=== PATIENT | female | born 1970 | race African-American/Black ===

== ENCOUNTER 2020-01-19 02:55 | Emergency (ER) | payer OTHER, SELFPAY ==
--- NOTE | ~2020-01-19 | XR_ITS ---
EXAMINATION: XR chest 2V DATE: 01/19/2020 03:20 INDICATION: Shortness of breath. TECHNIQUE: Frontal and lateral views of the chest were obtained. COMPARISON: None. FINDINGS: The chest demonstrates clear lungs without pneumonia, pleural effusion, or pneumothorax. Th e heart size is normal. IMPRESSION: 1. No acute cardiopulmonary disease. Reviewed, dictated and finalized at location A.
[2020-01-19 03:01] VITALS: BP 213/102; PULSE 67; RESP 21; TEMP 36.9; O2SAT 99
--- NOTE | 2020-01-19 03:08 | ECG_ITS ---
Measurements Intervals [place] Rate: 77 P: 53 WI: 173 QRS: -27 QRSD: 111 T: 1 QT: 360 QTc: 408 Interpretive Statements SINUS RHYTHM WITH SINUS ARRHYTHMIA INTRAVENTRICULAR CONDUCTION DELAY VOLTAGE CRITERIA FOR LVH MINIMAL Q WAVES- LATERAL LEADS BORDERLINE T WAVE ABNORMALITY- ANT/INF LEADS BASELINE ARTIFACT- V5 BORDERLINE ECG Electronically Signed On 01-19-2020 7:05:25 CDT by Sukumar Amezcua D.O.
--- NOTE | 2020-01-19 03:08 | ED.SOB ---
HPI - SOB/Dyspnea General Chief Complaint: Recheck/Abnormal Lab/Rx Stated Complaint: hi b/p re-check Time Seen by Provider: 01/19/20 03:03 Source: patient, RN notes reviewed and old records reviewed Mode of arrival: ambulatory Limitations: no limitations History of Present Illness HPI Narrative: Pt is a 49 y/o female who presents to the ED with c/o intermittent SOB starting 2 days ago. She notes that she began having SOB and what she believed to be a panic attack while walking up and down her stairs 2 nights ago. Pt states that her SOB later subsided. She notes that she noticed her BP was elevated earlier yesterday afternoon, which prompted her to be seen at an urgent care facility. Pt states that she again developed SOB while laying down to go to sleep this evening. She notes that she doesn't feel anxious at this time, and currently denies any SOB while in the ED bed. Pt also denies any CP or ABD pain. Denies any headaches, vision changes numbness or tingling in the extremities or any other symptoms of concern MD elicited complaint: shortness of breath Onset (ago): day(s) (2) Timing: intermittent and now resolved Exacerbating factors: lying flat Associated symptoms: denies other symptoms Related Data Allergies Allergy/AdvReac Type Severity Reaction Status Date / Time No Known Allergies Allergy Verified 01/19/20 03:09 Review of Systems Review of Systems: All systems reviewed & are unremarkable except as noted in HPI and below Cardiovascular: Cardiovascular: Denies chest pain Respiratory: Respiratory: Reports dyspnea Gastrointestinal: Gastrointestinal: Denies abdominal pain Psychiatric: Psychiatric: Denies anxiety [facility] Past Medical History Medical History Anemia HTN (hypertension) Surgical History Surgical History No significant past surgical history Family History Family History (Updated 12/11/15 @ 14:17 by DOCTOR UNKNOWN) Mother Hypertension Father Hypertension Patient's father is Social History Social History Smoking status: Never smoker Second hand tobacco smoke exposure: No Alcohol intake: never Exam Narrative: Exam Narrative: APPEARANCE: No acute distress, nontoxic, resting in bed EYES: EOMI HEENT: Normocephalic, atraumatic, OMM RESPIRATORY: No respiratory distress Clear to auscultation bilaterally with no rhonchi wheezing or rales. CARDIOVASCULAR: Regular rate and rhythm without murmurs rubs or gallops. ABDOMINAL: Soft, nontender, nondistended, no rebound or guarding MUSCULOSKELETAl: Moves all extremities. No clubbing, cyanosis or edema. NEURO: Awake and alert. Following commands, speech normal, no focal deficits SKIN:: Warm, dry. No rashes lesions or abrasions PSYCHIATRIC: Normal affect/mood, Course Course Emergency Course: According to old records, the pt had an office visit from Jun 2016 in which she was diagnosed with essential HTN. She was placed on Amlodipine 5 mg daily by her PCP at the time, Dr. Bekah Blake. Due to complaints of epigastric abdominal pain. Evaluate the patient on exam tender to palpation epigastric region, no tenderness right upper quadrant left upper quadrant Patient given a cocktail with resolution of symptoms Discussed with patient results of workup and diagnosis. Discussed need for follow-up with primary care, proper use of medication, and reasons to return to the emergency department. Patient understands and agrees to current treatment plan Vital Signs Vital signs: Vital Signs Temperature 98.5 F 01/19/20 03:01 Pulse Rate 67 01/19/20 03:01 Respiratory Rate 21 H 01/19/20 03:01 Blood Pressure 213/102 H 01/19/20 03:01 Pulse Oximetry 99 01/19/20 03:01 Temperature 98.5 F 01/19/20 03:01 Pulse Rate 56 L 01/19/20 04:47 Respiratory Rate 18 01/19/20 04:47 Blood Pressu
[2020-01-19 03:16] LABS: Basophils Percent Auto 0.6 % (0.2-1.2); Eosinophils Absolute Auto 0.1 K/mm3 (0-0.3); Eosinophils Percent Auto 1.7 % (0-4.4); Hematocrit 38.8 % (37.0-47.0); Hemoglobin 12.6 g/dL (12.0-15.0); Lymphocytes Absolute Auto 2.26 K/mm3 (0.9-3.2); Mean Corpuscular HGB Conc 32.5 g/dl (32-36); Mean Corpuscular Hemoglobin 29.9 pg (26-34); Mean Corpuscular Volume 91.9 fl (80-100); Monocytes Absolute Auto 0.4 K/mm3 (0.1-0.6); Neutrophils Absolute Auto 2.5 K/mm3 (1.3-6.7); Neutrophils Percent Auto 47.7 % (45.5-73.1); Platelet Count Result 225 k/mm3 (150-375); Red Blood Count 4.22 M/mm3 (4.2-5.4); Red Cell Distribution Width 12.4 % (11.5-14.5); White Blood Count 5.3 K/mm3 (4.5-10.0)
[2020-01-19 03:20] VITALS: BP 175/90
[2020-01-19 03:30] LABS: Blood Urea Nitrogen 9 mg/dL (7-17); Calcium 9.2 mg/dL (8.4-10.2); Carbon Dioxide 28 mmol/L (22-30); Chloride 103 mmol/L (98-107); Estimated Glomerular Filt Rate > 60; Glucose 99 mg/dL (65-105); Sodium 141 mmol/L (137-145)
[2020-01-19 03:40] LABS: Partial Thromboplastin Time 30.2 SECONDS (22.3-36.8)
[2020-01-19 03:42] LABS: Troponin I < 0.012 ng/mL (0.000-0.034)
[2020-01-19] MEDS: POTASSIUM CHLORIDE 20 MEQ TABLET 40 MEQ PO (03:54)
[2020-01-19 03:55] VITALS: BP 178/84; PULSE 102; RESP 23; O2SAT 97
[2020-01-19 04:36] LABS: Alanine Aminotransferase 13 U/L (4-35); Albumin Level 4.6 g/dL (3.5-5.1); Alkaline Phosphatase 111 U/L (38-126); Aspartate Amino Transferase 24 U/L (14-36); Bilirubin,Total 0.6 mg/dL (0.2-1.3); Lipase 54 U/L (23-300)
[2020-01-19 04:47] VITALS: BP 168/96; PULSE 56; RESP 18; O2SAT 100
[2020-01-19 05:18] LABS: Add Urine Microscopic? YES; Appearance Urine Clear (Clear); Bilirubin Urine Negative (Negative); Blood Urine 2+ (Negative); Color Urine Yellow (Yellow); Glucose Urine UA Negative (Negative); Ketones Urine Negative (Negative); Leukocyte Esterase Ur Negative LEU/UL (Negative); Mucus Urine Rare /lpf; Nitrate Urine Negative (Negative); Protein Urine Negative (Negative); Specific Grav Ur 1.014 (1.001-1.035); Squamous Epithelial Cell Urine Many /hpf (Few); Urobilinogen Urine Negative mg/dL (<2.0); WBC Urine 0-3 /hpf
[2020-01-19 06:03] VITALS: BP 169/89; PULSE 62; RESP 14; TEMP 36.9; O2SAT 97
== END 2020-01-19 06:03 | disposition home or self-care (01) ==
PROVIDERS: Emergency Provider Emergency Medicine
DX: I10 Essential (primary) hypertension (principal); R10.13 Epigastric pain; Z86.2 Personal history of diseases of the blood and blood-forming organs and certain disorders involving the immune mechanism
CPT/HCPCS: 36415; 71046; 80048; 80076; 81001; 83690; 84484; 85025; 85610; 85730; 93005; 99284; A9270

== ENCOUNTER 2020-01-20 15:26 | Emergency (ER) | payer OTHER, SELFPAY ==
[2020-01-20 15:34] VITALS: BP 161/84; PULSE 77; RESP 18; TEMP 36.9; O2SAT 100
[2020-01-20 15:40] VITALS: PULSE 66
--- NOTE | 2020-01-20 15:43 | ED.CHESTPAIN ---
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 She states that she was seen her yesterday for SOB and ABD pain and was dx with HTN and GERD. She reports that she was placed on Amlodipine and Famotidine, and states that she has taken 2 dosages of each. She notes that today her BP was high, she developed SOB, TORRES, and substernal CP, so she returned to the ED. She also notes that her CP only lasted roughly 2 minutes and has since resolved, but that she is still having her other symptoms. She denies any radiation of the pain or anything aggravating or alleviating it. She also denies any N/V/D, fevers, chills, sweats, sore throat, rhinorrhea, or cough. MD complaint: chest pain Onset (ago): minute(s) Timing of current episode: now resolved Pain location: substernal Pain radiation: none Quality: tightness and burning Relieving factors: nothing Exacerbating factors: nothing Associated symptoms: dyspnea and other (TORRES) Related Data Allergies Allergy/AdvReac Type Severity Reaction Status Date / Time No Known Allergies Allergy Verified 01/20/20 15:49 Review of Systems Review of Systems: All systems reviewed & are unremarkable except as noted in HPI and below Constitutional: Constitutional: Denies chills, Denies fever(s) and Denies other (sweats) ENT: Denies nasal discharge and Denies sore throat Cardiovascular: Cardiovascular: Reports chest pain (resolved) Respiratory: Respiratory: Denies cough and Reports dyspnea Gastrointestinal: Gastrointestinal: Denies diarrhea, Denies nausea and Denies vomiting Neurologic: Reports headache(s) [facility] Past Medical History Medical History (Updated 01/20/20 @ 17:59 by Tavo Campos MD) Anemia GERD (gastroesophageal reflux disease) HTN (hypertension) Surgical History Surgical History No significant past surgical history Family History Family History Mother Hypertension Father Hypertension Patient's father is Social History Social History Smoking status: Never smoker Second hand tobacco smoke exposure: No Alcohol intake: never Gender identity (if verbalized by the patient): Female Exam Narrative: Exam Narrative: GENERAL: Well-appearing, well-nourished, and in no acute distress. HEAD: Normocephalic, atraumatic. ENT: Mucous membranes moist. CHEST: Clear to auscultation. No respiratory distress. HEART: Regular rate and rhythm. Normal peripheral pulses. ABDOMEN: Soft, nontender, nondistended. EXTREMITIES: Normal range of motion. No edema. SKIN: Warm, dry, no rash. NEURO: Alert and oriented x3. PSYCH: Normal mood and affect. Course Course Emergency Course: Unremarkable evaluation. Reviewed previous visit. Needs follow-up with PCP and continue amlodipine and famotidine therapy. Vital Signs Vital signs: Vital Signs Temperature 98.4 F 01/20/20 15:34 Pulse Rate 77 01/20/20 15:34 Respiratory Rate 18 01/20/20 15:34 Blood Pressure 161/84 H 01/20/20 15:34 Pulse Oximetry 100 01/20/20 15:34 Temperature 98.4 F 01/20/20 15:34 Pulse Rate 74 01/20/20 17:30 Respiratory Rate 18 01/20/20 17:30 Blood Pressure 136/86 01/20/20 17:30 Pulse Oximetry 100 01/20/20 17:30 MDM - Chest Pain Lab Data Result diagrams: 01/20/20 15:55 01/20/20 16:21 Labs: Lab Results 01/20/20 01/20/20 01/20/20 Range/Units 15:55 16:21 16:21 WBC 7.0 (4.5-10.0) K/mm3 RBC 4.38 (4.2-5.4) M/mm3 Hgb 13.0 (12.0-15.0) g/dL Hct 40.0 (37.0-47.0) % MCV 91.3 (
--- NOTE | 2020-01-20 15:48 | ECG_ITS ---
Measurements Intervals [place] Rate: 65 P: 38 VT: 160 QRS: -24 QRSD: 105 T: 6 QT: 395 QTc: 413 Interpretive Statements SINUS RHYTHM VOLTAGE CRITERIA FOR LVH MINIMAL Q WAVES- LATERAL LEADS BORDERLINE T WAVE ABNORMALITY- ANTEROLAT/INF LEADS BASELINE WANDER- I, II, AVR, AVL, AVF, V1-V3 BORDERLINE ECG Electronically Signed On 01-20-2020 16:49:57 CDT by Sukumar Amezcua D.O.
[2020-01-20 16:03] LABS: Basophils Percent Auto 0.6 % (0.2-1.2); Eosinophils Percent Auto 0.4 % (0-4.4); Immature Granulocyte Absolute 0.01 K/mm3 (0.00-0.031); Immature Granulocyte Percent A 0.1 % (0-0.5); Lymphocytes Absolute Auto 1.48 K/mm3 (0.9-3.2); Lymphocytes Percent Auto 21.3 % (18.3-44.2); Mean Corpuscular HGB Conc 32.5 g/dl (32-36); Mean Corpuscular Hemoglobin 29.7 pg (26-34); Mean Corpuscular Volume 91.3 fl (80-100); Mean Platelet Volume 11.5 fl (7.4-10.4); Monocytes Absolute Auto 0.4 K/mm3 (0.1-0.6); Monocytes Percent Auto 5.6 % (2.6-8.5); Platelet Count Result 242 k/mm3 (150-375); Red Blood Count 4.38 M/mm3 (4.2-5.4); Red Cell Distribution Width 12.2 % (11.5-14.5)
[2020-01-20 16:36] LABS: INR 1.1; Prothrombin Time 13.6 Seconds (11.1-14.7)
[2020-01-20 16:37] LABS: Partial Thromboplastin Time 30.3 SECONDS (22.3-36.8)
[2020-01-20 16:39] LABS: Blood Urea Nitrogen 16 mg/dL (7-17); Calcium 9.3 mg/dL (8.4-10.2); Carbon Dioxide 25 mmol/L (22-30); Chloride 106 mmol/L (98-107); Estimated CRCL calculation 65 ml/min; Estimated Glomerular Filt Rate > 60; Glucose 76 mg/dL (65-105); Potassium 3.6 mmol/L (3.4-5.0); Sodium 139 mmol/L (137-145)
[2020-01-20 16:51] LABS: Troponin I < 0.012 ng/mL (0.000-0.034)
[2020-01-20 17:30] VITALS: BP 136/86; PULSE 74; RESP 18; O2SAT 100
[2020-01-20 18:27] VITALS: BP 134/90; PULSE 70; RESP 18; O2SAT 100
== END 2020-01-20 18:33 | disposition home or self-care (01) ==
PROVIDERS: Emergency Provider Emergency Medicine
DX: I10 Essential (primary) hypertension (principal); F41.9 Anxiety disorder, unspecified; K21.9 Gastro-esophageal reflux disease without esophagitis; Z86.2 Personal history of diseases of the blood and blood-forming organs and certain disorders involving the immune mechanism; R94.31 Abnormal electrocardiogram [ECG] [EKG]
CPT/HCPCS: 36415; 80048; 84484; 85025; 85610; 85730; 93005; 99284

== ENCOUNTER 2020-10-05 01:59 | Outpatient (CLI) | payer OTHER, SELFPAY ==
[2020-10-05 19:59] LABS: SARS-CoV-2 RNA PCR Negative
== END 2020-10-05 02:00 | disposition home or self-care (01) ==
LOC: ANHCOVIDDT 01:59
PROVIDERS: Visit Provider Obstetrics & Gynecology
DX: Z01.818 Encounter for other preprocedural examination (principal); Z20.828 Contact with and (suspected) exposure to other viral communicable diseases
CPT/HCPCS: 87635; C9803; U0003

== ENCOUNTER 2020-10-05 12:58 | Outpatient (CLI) | payer OTHER, SELFPAY ==
[2020-10-05 13:29] LABS: Hematocrit 35.7 % (37.0-47.0); Hemoglobin 12.2 g/dL (12.0-15.0)
== END 2020-10-05 12:59 | disposition home or self-care (01) ==
LOC: ANHSURGERY 13:05
PROVIDERS: PCP Emergency Medicine; Visit Provider Obstetrics & Gynecology
DX: Z01.818 Encounter for other preprocedural examination (principal); Z20.828 Contact with and (suspected) exposure to other viral communicable diseases
CPT/HCPCS: 36415; 85014; 85018

== ENCOUNTER 2020-10-08 02:29 | Day surgery (SDC) | payer OTHER, SELFPAY ==
--- NOTE | 2020-10-02 13:52 | PM.IMHP ---
H&P: HPI History of Present Illness Date/Time: 10/02/20 13:52 Chief complaint: Enlarged Uterus Narrative: Orin Castillo is a 50 year old female 3. Para 3 admitted for hysteroscopy and dilatation and curettage. She has periods postmenopausal bleeding. She underwent an ultrasound which showed some fluid in the endometrial lining. In light of the she will undergo hysteroscopy /dilatation and curettage to rule pathology. Risks and benefits reviewed. She had all questions answered. She asked to proceed Review of Systems Review of Systems: All systems reviewed & are unremarkable except as noted in HPI and below PMFSH Past Medical History Medical History Anemia GERD (gastroesophageal reflux disease) HTN (hypertension) Surgical History Surgical History No significant past surgical history Family History Family History Mother Hypertension Father Hypertension Patient's father is Social History Social History Smoking status: Never smoker Second hand tobacco smoke exposure: No Alcohol intake: never Gender identity (if verbalized by the patient): Female Meds Home Medications and Allergies Home Medications Medication Instructions Recorded Confirmed Type amlodipine 5 mg PO DAILY #14 tablet 01/19/20 Rx famotidine [Pepcid] 20 mg PO DAILY #14 tablet 01/19/20 Rx Allergies Allergy/AdvReac Type Severity Reaction Status Date / Time No Known Allergies Allergy Verified 01/20/20 15:49 Exam Const: General: no acute distress Eyes: General: appearance normal, both eyes and all related structures Neck: Neck: supple and no JVD Thyroid: thyroid normal Resp: Effort & Inspection: normal respiratory effort Auscultation: clear to auscultation bilaterally Cardio: Rate: regular rate Rhythm: regular rhythm GI: Inspection: non-distended GI Palp: Yes Soft to palpation, No Tenderness to palpation present (GI) and No Guarding due to palpation present (GI) Auscultation: normal bowel sounds : General: Yes bladder normal to palpation External Female Exam: normal external appearance Speculum Exam - Vagina: normal vaginal discharge and No vaginal bleeding Speculum Exam - Cervix: nontender Bimanual exam- vagina & uterus: bladder normal to palpation and No Cervical tenderness present OB/external & speculum: No vaginal bleeding Skin: General skin exam: no rashes or lesions noted Extrem: General: normal to inspection and no edema Psych: Mental Status: mental status grossly normal Affect: normal affect Assessment and Plan Additional Plan impression: Postmenopausal bleeding Plan: Hysteroscopy/dilatation curettage
[2020-10-03 12:23] VITALS: BMI 28.8
--- NOTE | 2020-10-05 14:14 | WPDANESEPPF ---
Anes - Initial Pre Proc Eval Procedure: Operation Date: 10/08/20 08:30 Proposed Procedures p Hysteroscopy Dilation and Curettage - José Carballo MD Date/Time: 10/05/20 14:14 Surgeon: José Carballo MD Pre Op Diagnosis: Enlarged Uterus Patient Data Age: 50 Gender: F Height: 1.45 m Weight: 60.35 kg Allergies Allergy/AdvReac Type Severity Reaction Status Date / Time No Known Allergies Allergy Verified 10/08/20 06:33 Home Medications Medication Instructions Recorded Confirmed Type lisinopril 20 mg PO QAM 10/03/20 10/08/20 History omeprazole 20 mg PO QAM 10/03/20 10/08/20 History hydrocodone-acetaminophen [[place]] 1 tablet PO Q4H PRN #20 tablet 10/08/20 Rx Patient hx anesthesia problems: none Family hx anesthesia problems: none PMFSH Past Medical History Medical History Anemia GERD (gastroesophageal reflux disease) HTN (hypertension) Surgical History Surgical History No significant past surgical history Family History Family History Mother Hypertension Father Hypertension Patient's father is Social History Social History Smoking status: Never smoker Second hand tobacco smoke exposure: No Alcohol intake: never Living arrangements: with family Gender identity (if verbalized by the patient): Female Spiritual care concerns: No Anes - Eval Final PreProcedure Day of Procedure 10/05/20 14:14 Patient weight: overweight Heart: regular rate and rhythm Lungs: clear to auscultation and normal air movement Airway: Mallampati scale class III Neurological: alert and oriented Last oral intake: >/= 8 hours ASA classification: II Emergent: no Anesthetic plan: proceed Anesthesia type and monitoring: general GIVS and standard monitoring Informed Consent: The patient's anesthetic plan and its attendant risks and benefits were discussed with the patient/family/POA. Questions were solicited and answers provided to the satisfaction of the patient/family/POA.
--- NOTE | 2020-10-08 03:43 | WPDHPUPDATE1 ---
History and Physical Update Update Date/Time: 10/08/20 03:43 History and Physical has been reviewed, including an updated exam of the patient. There are NO changes in the patient's condition. Risks, benefits, and alternatives have been discussed and questions answered. Patient agrees to proceed with procedure.
[2020-10-08 06:29] VITALS: BP 158/86; PULSE 59; RESP 18; TEMP 36.4; O2SAT 100
[2020-10-08 06:49] VITALS: BMI 28.2
[2020-10-08] MEDS: ACETAMINOPHEN 500 MG TABLET 1000 MG PO (07:35)
[2020-10-08] MEDS: LACTATED RINGERS 1,000 ML 30 ML IV CONT (07:49)
--- NOTE | 2020-10-08 08:53 | P.OP_ITS ---
Procedure Note - Detailed Date of procedure: 10/08/20 Pre-op diagnosis: Enlarged Uterus Surgeon: José Carballo MD Postop diagnosis: Postmenopausal bleeding Procedure: Hysteroscopy/dilatation and curettage Anesthesia: IV sedation local EBL: 5cc Findings: [place] endometrial lining with atrophic appearing endometrium. Complications none Description of procedure the patient was prepped and draped in the normal sterile fashion placed in the dorsal lithotomy position. Under excellent IV sedation weighted speculum was placed in posterior fornix vagina. Anterior lip of the cervix grasped with single-tooth tenaculum and 2.5cc of 1% xylocaine anesthesia placed at 2, 4, 8, 10:00 a.m. of the cervix. The uterus sounded to 10cm. Serial dilatation with fragmented dilators performed followed by passage of the 5mm visualizing hysteroscope using normal saline as visualizing medium. Benign bland appearing endometrial tissue was seen. Each fallopian tube os could be seen. The uterus was then scraped over the entire 360? until a good grating sound was heard. When no further tissue removed the instruments were removed. All sponge, needle, instrument counts were correct. There were no immediate complications
[2020-10-08 08:57] VITALS: BP 180/96; PULSE 63; RESP 16; O2SAT 100
[2020-10-08 09:25] VITALS: BP 185/95; PULSE 53; RESP 16; O2SAT 100
[2020-10-08 09:48] VITALS: BP 191/92; PULSE 57; RESP 16
== END 2020-10-08 09:51 | disposition home or self-care (01) ==
PROVIDERS: PCP Emergency Medicine; Visit Provider Obstetrics & Gynecology
PROC: 0U5B8ZZ Destruction of Endometrium, Via Natural or Artificial Opening Endoscopic (ICD-10-PCS; CPT 58563; principal; 2020-10-08 08:30)
DX: N95.0 Postmenopausal bleeding (principal); N85.8 Other specified noninflammatory disorders of uterus; I10 Essential (primary) hypertension; K21.9 Gastro-esophageal reflux disease without esophagitis
CPT/HCPCS: 58558; 36415; 85014; 85018; 87635; 88305; A9270; C9803; J2250; J2704; J3010; J7030; J7120; U0003

== ENCOUNTER 2020-10-23 18:36 | Emergency (ER) | payer OTHER, SELFPAY ==
[2020-10-23] VITALS (9 sets, daily range): BP systolic 108–161; BP diastolic 67–85; PULSE 48–87; RESP 13–19; TEMP 36.8; O2SAT 96–99
--- NOTE | ~2020-10-23 | XR_ITS ---
EXAMINATION: XR chest 2V EXAM DATE: 10/23/2020 19:16 INDICATION: Midsternal chest pain. High blood pressure. TECHNIQUE: Frontal and lateral projections of the chest obtained and reviewed. Comparison is made to prior examination from 01/19/2020. FINDINGS: There is moderate mid thoracic dextroscoliosis. The lungs are clear. There are no pleural effusions. The cardiomediastinal silhouette is within normal limits. There is no pneumothorax susp ected. IMPRESSION: No acute cardiopulmonary findings. Scoliosis. Reviewed, dictated and finalized at location A. NEL SPECIALIST
--- NOTE | 2020-10-23 18:42 | ECG_ITS ---
Measurements Intervals [place] Rate: 73 P: 51 OR: 168 QRS: -10 QRSD: 90 T: 30 QT: 369 QTc: 407 Interpretive Statements SINUS RHYTHM WITH SINUS ARRHYTHMIA CANNOT RULE OUT SEPTAL INFARCT, AGE INDETERMINATE BORDERLINE T WAVE ABNORMALITY- ANT/INF LEADS BASELINE ARTIFACT- I, II, III, AVR, AVL, AVF, V3-V6 ABNORMAL ECG Electronically Signed On 10-23-2020 19:23:23 PATIENT EDUCATOR by Sukumar Amezcua D.O.
--- NOTE | 2020-10-23 18:57 | ED.CHESTPAIN ---
HPI - Chest Pain General Chief Complaint: Chest Pain Stated Complaint: chest pain Time Seen by Provider: 10/23/20 18:43 Source: patient Mode of arrival: ambulatory Limitations: no limitations History of Present Illness HPI narrative: A 50-year-old female presents to the emergency department today with complaints of chest pain. Patient states that the episode started approximately 20 to 25 minutes prior to her arrival. She admits that it was a sharp stabbing pain right in the center of her chest. She notes the whole experience lasted approximately 5 minutes. She states that the pain is completely subsided now and she is feeling better. She denies ever having anything like this before. Her mother presents with her today and is asking if this could be a symptom of anxiety because she felt her daughter was extremely anxious when this was going on. Related Data Home Medications Medication Instructions Recorded Confirmed amlodipine 10/23/20 paroxetine HCl mg PO 10/23/20 Allergies Allergy/AdvReac Type Severity Reaction Status Date / Time No Known Allergies Allergy Verified 10/23/20 18:43 Review of Systems Review of Systems: Narrative: CONSTITUTIONAL: Denies fever, chills, or sweats. EYES: Denies visual changes, redness, or discharge. ENT: Denies rhinorrhea, congestion, sore throat, or otalgia. CARDIOVASCULAR: Denies chest pain, palpitations, or edema. RESPIRATORY: Denies cough or dyspnea. GASTROINTESTINAL: Denies abdominal pain, nausea, vomiting, or diarrhea. GENITOURINARY: Denies dysuria or hematuria. SKIN: Denies rash or itching. MUSCULOSKELETAL: Denies back pain, joint pain, or myalgia. NEUROLOGIC: Denies headache, numbness, dizziness, or weakness. PSYCHIATRIC: Denies anxiety or depression. [facility] Past Medical History Medical History Anemia GERD (gastroesophageal reflux disease) HTN (hypertension) Surgical History Surgical History No significant past surgical history Family History Family History Mother Hypertension Father Hypertension Patient's father is Social History Social History Smoking status: Never smoker Second hand tobacco smoke exposure: No Alcohol intake: never Gender identity (if verbalized by the patient): Female Spiritual care concerns: No Exam Narrative: Exam Narrative: GENERAL: Well-appearing, well-nourished, and in no acute distress. HEAD: Normocephalic, atraumatic. EYES: PERRLA and EOMI. ENT: Nares clear, no rhinorrhea or epistaxis. Mucous membranes moist. Oropharynx without tonsillar hypertrophy exudate or other lesions. Bilateral TMs pearly myers nonbulging NECK: Supple. No adenopathy or masses. No carotid bruits or JVD CHEST: Clear to auscultation. No respiratory distress. No wheezes rales or rhonchi HEART: Regular rate and rhythm. No murmur heard. Normal peripheral pulses. ABDOMEN: Soft, nontender, nondistended, normal active bowel sounds. EXTREMITIES: Normal range of motion. No edema. SKIN: Warm, dry, no rash. NEURO: No focal deficits. Alert and oriented x3. PSYCH: Normal mood and affect. Course Reevaluation(s) Reevaluation #1: Patient resting comfortably at this time. Updated her to her normal results. Patient verbalizes her understanding the plan will be discharged home. She is to follow-up with her primary care physician. Date: 10/23/20 Time: 22:27 Vital Signs Vital signs: Vital Signs Temperature 36.8 C 10/23/20 18:40 Pulse Rate 87 10/23/20 18:40 Respiratory Rate 18 10/23/20 18:40 Pulse Oximetry 96 10/23/20 18:40 Temperature 36.8 C 10/23/20 18:40 Pulse Rate 55 L 10/23/20 20:56 Respiratory Rate 18 10/23/20 20:56 Blood Pressure 108/71 10/23/20 20:56 Pulse Oximetry 99 10/23/20 20:56
[2020-10-23] MEDS: ASPIRIN 81 MG CHEWABLE TABLET 324 MG PO (19:07)
[2020-10-23 19:29] LABS: Basophils Percent Auto 0.5 % (0.2-1.2); Eosinophils Absolute Auto 0.2 K/mm3 (0-0.3); Eosinophils Percent Auto 4.2 % (0-4.4); Hematocrit 36.5 % (37.0-47.0); Hemoglobin 12.1 g/dL (12.0-15.0); Immature Granulocyte Absolute 0.01 K/mm3 (0.00-0.031); Immature Granulocyte Percent A 0.2 % (0-0.5); Lymphocytes Absolute Auto 1.69 K/mm3 (0.9-3.2); Lymphocytes Percent Auto 41.3 % (18.3-44.2); Mean Corpuscular HGB Conc 33.2 g/dl (32-36); Mean Corpuscular Hemoglobin 30.2 pg (26-34); Mean Platelet Volume 11.5 fl (7.4-10.4); Monocytes Absolute Auto 0.3 K/mm3 (0.1-0.6); Monocytes Percent Auto 7.1 % (2.6-8.5); Neutrophils Absolute Auto 1.9 K/mm3 (1.3-6.7); Neutrophils Percent Auto 46.7 % (45.5-73.1); Platelet Count Result 177 k/mm3 (150-375); Red Blood Count 4.01 M/mm3 (4.2-5.4); Red Cell Distribution Width 12.2 % (11.5-14.5); White Blood Count 4.1 K/mm3 (4.5-10.0)
[2020-10-23 19:41] LABS: Alanine Aminotransferase 16 U/L (4-35); Albumin Level 3.9 g/dL (3.5-5.1); Alkaline Phosphatase 68 U/L (38-126); Anion Gap 6 mmol/L (8-16); Aspartate Amino Transferase 22 U/L (14-36); Bilirubin,Total 0.3 mg/dL (0.2-1.3); Blood Urea Nitrogen 16 mg/dL (7-17); Calcium 9.4 mg/dL (8.4-10.2); Carbon Dioxide 31 mmol/L (22-30); Chloride 102 mmol/L (98-107); Estimated CRCL calculation 66 ml/min; Estimated Glomerular Filt Rate > 60; Glucose 184 mg/dL (65-105); Lipase 93 U/L (23-300); Potassium 3.7 mmol/L (3.4-5.0); Sodium 139 mmol/L (137-145)
[2020-10-23 19:53] LABS: NT Pro B Type Natriuretic Pept 33 PG/ML (5-100); Troponin I < 0.012 ng/mL (0.000-0.034)
[2020-10-23 22:01] LABS: Troponin I < 0.012 ng/mL (0.000-0.034)
[2020-10-23] MEDS: ACETAMINOPHEN 500 MG TABLET 1000 MG PO (23:05)
== END 2020-10-23 23:10 | disposition home or self-care (01) ==
PROVIDERS: Emergency Provider Emergency Medicine; PCP Emergency Medicine
DX: R07.9 Chest pain, unspecified (principal); K21.9 Gastro-esophageal reflux disease without esophagitis; I10 Essential (primary) hypertension
CPT/HCPCS: 36415; 71046; 80053; 83690; 83880; 84484; 85025; 93005; 99284; A9270

== ENCOUNTER 2021-05-17 13:32 | Outpatient (CLI) | payer OTHER, SELFPAY ==
--- NOTE | ~2021-05-17 | XR_ITS ---
EXAMINATION: XR thoracic spine 3V DATE: 05/17/2021 14:03 INDICATION: Nontraumatic back pain TECHNIQUE: AP, lateral and lateral swimmer's views of the thoracic spine were obtained. COMPARISON: None. FINDINGS: There are 41 degrees of thoracic dextroscoliosis. No fracture is identified. There is asymm etric loss of intervertebral disc space height on the left at the levels involved by scoliosis. The v ertebral body heights are normal. Small degenerative osteophytes project from the anterior endplates of multiple vertebral bodies. The visualized portions of the thorax are unremarkable. There is modera te cervical spondylosis. IMPRESSION: 1. Dextroscoliosis and mild spondylosis of the thoracic spine. No acute findings. Reviewed, dictated and finalized at location A. IMPRESSION: 1. Dextroscoliosis and mild spondylosis of the thoracic spine. No acute finding s.
--- NOTE | ~2021-05-17 | XR_ITS ---
EXAMINATION: XR lumbar spine 2-3V DATE: 05/17/2021 14:03 INDICATION: Low back pain TECHNIQUE: Anteroposterior and lateral views of the lumbar spine, and cone-down lateral view of the l umbosacral junction were obtained. COMPARISON: None. FINDINGS: There are 23 degrees of thoracolumbar levoscoliosis. No fracture is identified. Bone alignm ent is normal. The vertebral body heights are maintained. There is mild loss of intervertebral disc s pace height at L5-S1. Surgical clips in the pelvis are likely from tubal ligation. There is a moderat e volume of colonic stool. IMPRESSION: 1. Thoracolumbar levoscoliosis and mild lumbar spondylosis without acute findings. Reviewed, dictated and finalized at location A. IMPRESSION: 1. Thoracolumbar levoscoliosis and mild lumbar spondylosis without acute findin gs.
== END 2021-05-17 13:33 | disposition home or self-care (01) ==
PROVIDERS: PCP Emergency Medicine; Visit Provider Emergency Medicine
DX: M47.896 Other spondylosis, lumbar region (principal); M47.894 Other spondylosis, thoracic region
CPT/HCPCS: 72072; 72100

== ENCOUNTER 2022-03-25 09:35 | Outpatient (CLI) | payer OTHER, SELFPAY ==
--- NOTE | ~2022-03-25 | US_ITS ---
US abdomen complete EXAMINATION: US Abdomen Complete INDICATION: Leukopenia PROCEDURE: Realtime High Resolution abdomen ultrasound. COMPARISON: No prior studies for comparison FINDINGS: Gallbladder within normal limits. No gallstones, pericholecystic fluid, gallbladder wall t hickening or biliary dilatation. Common bile duct measures 4 mm. Liver echotexture within normal limits without focal mass. Pancreas within normal limits. Pancreati c tail is obscured by bowel gas. Spleen is unremarkeable. Renal echotexture is within normal limits bilaterally without hydronephrosis, contour deforming mass or renal stone. Right kidney measures 9.1 cm. Left kidney measures 9.4 cm. Visualized aspects of the aorta and IVC are within normal limits. Portal vein is patent. No sonograph ic Galloway's sign indicated by the technologist. IMPRESSION: 1: Normal abdominal ultrasound. Reviewed, dictated and finalized at location B.
[2022-03-25 11:06] LABS: Eosinophils Absolute Auto 0.4 K/mm3 (0-0.3); Eosinophils Percent Auto 9.1 % (0-4.4); Hematocrit 35.6 % (37.0-47.0); Hemoglobin 11.9 g/dL (12.0-15.0); Immature Granulocyte Absolute 0.01 K/mm3 (0.00-0.031); Immature Granulocyte Percent A 0.3 % (0-0.5); Lymphocytes Absolute Auto 1.35 K/mm3 (0.9-3.2); Lymphocytes Percent Auto 35.1 % (18.3-44.2); Mean Corpuscular HGB Conc 33.4 g/dl (32-36); Mean Corpuscular Volume 89.7 fl (80-100); Mean Platelet Volume 10.6 fl (7.4-10.4); Monocytes Absolute Auto 0.2 K/mm3 (0.1-0.6); Neutrophils Absolute Auto 1.9 K/mm3 (1.3-6.7); Neutrophils Percent Auto 48.5 % (45.5-73.1); Platelet Count Result 210 k/mm3 (150-375); Red Blood Count 3.97 M/mm3 (4.2-5.4); Red Cell Distribution Width 12.7 % (11.5-14.5); White Blood Count 3.9 K/mm3 (4.5-10.0)
[2022-03-25 11:14] LABS: Alanine Aminotransferase 18 U/L (6-35); Albumin Level 4.5 g/dL (3.5-5.1); Alkaline Phosphatase 81 U/L (38-126); Anion Gap 2 mmol/L (8-16); Aspartate Amino Transferase 27 U/L (14-36); Bilirubin,Total 0.3 mg/dL (0.2-1.3); Blood Urea Nitrogen 15 mg/dL (7-17); Calcium 9.2 mg/dL (8.4-10.2); Carbon Dioxide 34 mmol/L (22-30); Chloride 105 mmol/L (98-107); Estimated Glomerular Filt Rate > 60; Glucose 92 mg/dL (65-110); Potassium 3.4 mmol/L (3.4-5.0); Sodium 141 mmol/L (137-145)
[2022-03-25 11:17] LABS: Iron 72 ug/dL (37-170)
[2022-03-25 11:27] LABS: Percent Iron Saturation 23 % (20-50)
[2022-03-25 12:19] LABS: Folic Acid 9.7 ng/mL (2.76->20)
== END 2022-03-25 09:36 | disposition home or self-care (01) ==
PROVIDERS: PCP Emergency Medicine; Visit Provider Internal Medicine Hematology & Oncology
DX: D72.819 Decreased white blood cell count, unspecified (principal)
CPT/HCPCS: 36415; 76700; 80053; 82607; 82728; 82746; 83540; 83550; 85025; 86038; 88184

== ENCOUNTER 2022-08-24 12:57 | Emergency (ER) | payer OTHER, SELFPAY ==
[2022-08-24] VITALS (21 sets, daily range): BP systolic 113–159; BP diastolic 67–85; PULSE 43–68; RESP 12–19; TEMP 36.7; O2SAT 96–100
--- NOTE | ~2022-08-24 | CT_ITS ---
EXAMINATION: CT abdomen pelvis w con DATE: 08/24/2022 14:37 INDICATION: Left abdominal pain TECHNIQUE: Computed tomography (CT) of the abdomen and pelvis was performed with 100 mL Omnipaque-350 intravenous contrast. Automated exposure control and iterative reconstruction technique were employe d. The dose-length product was 292.35 mGy-cm. COMPARISON: None. FINDINGS: Lower thorax: Unremarkable Liver: Small simple cyst near the gallbladder fossa. Additional subcentimeter hypodensities that are too small to characterize. Biliary/Gallbladder: Gallbladder is normal. No bile duct dilation. Pancreas: No mass or duct dilation. Spleen: Normal. Adrenals:No mass. Kidneys: Nonobstructive bilateral midpole punctate calcifications. No suspicious mass. No hydronephro sis. GI tract: Prominent distal esophageal and gastric wall edema No small or large bowel dilation. Append ix not visualized. Mesentery/Peritoneum: No ascites, mass, or free air. Retroperitoneum: No mass. Pelvis: Tubal ligation clips. Uterine fibroids. Small volume free pelvic fluid. Distal ureters are di fficult to trace. Left Bartholin's gland cyst, without definite inflammatory change. Soft Tissues: Soft tissues and body wall unremarkable. Bones: No acute osseous finding. IMPRESSION: Esophagitis/gastritis. No additional acute abdominopelvic process detected. Reviewed, dictated and finalized at location K. SQUAD AGENT
[2022-08-24 13:22] LABS: Basophils Percent Auto 0.5 % (0.2-1.2); Eosinophils Absolute Auto 0.1 K/mm3 (0-0.3); Eosinophils Percent Auto 2.7 % (0-4.4); Hematocrit 37.4 % (37.0-47.0); Hemoglobin 12.1 g/dL (12.0-15.0); Immature Granulocyte Absolute 0.01 K/mm3 (0.00-0.031); Immature Granulocyte Percent A 0.2 % (0-0.5); Lymphocytes Absolute Auto 1.62 K/mm3 (0.9-3.2); Lymphocytes Percent Auto 40.1 % (18.3-44.2); Mean Corpuscular HGB Conc 32.4 g/dl (32-36); Mean Corpuscular Volume 92.6 fl (80-100); Mean Platelet Volume 10.7 fl (7.4-10.4); Monocytes Absolute Auto 0.3 K/mm3 (0.1-0.6); Monocytes Percent Auto 6.4 % (2.6-8.5); Neutrophils Percent Auto 50.1 % (45.5-73.1); Platelet Count Result 180 k/mm3 (150-375); Red Blood Count 4.04 M/mm3 (4.2-5.4); Red Cell Distribution Width 12.7 % (11.5-14.5)
[2022-08-24 13:30] LABS: Appearance Urine Clear (Clear); Bilirubin Urine Negative (Negative); Blood Urine 1+ (Negative); Color Urine Yellow (Yellow); Glucose Urine UA Negative (Negative); Ketones Urine Trace mg/dL (Negative); Leukocyte Esterase Ur Trace LEU/UL (Negative); Nitrate Urine Negative (Negative); Protein Urine Negative (Negative); Specific Grav Ur 1.025 (1.001-1.035); Urobilinogen Urine 0.2 mg/dL (<2.0); pH Urine 6.5 (5.0-9.0)
[2022-08-24 13:32] LABS: Alanine Aminotransferase 19 U/L (6-35); Albumin Level 4.5 g/dL (3.5-5.1); Alkaline Phosphatase 83 U/L (38-126); Anion Gap 11 mmol/L (8-16); Aspartate Amino Transferase 24 U/L (14-36); Bilirubin,Total 0.7 mg/dL (0.2-1.3); Blood Urea Nitrogen 14 mg/dL (7-17); Calcium 9.1 mg/dL (8.4-10.2); Carbon Dioxide 27 mmol/L (22-30); Chloride 105 mmol/L (98-107); Estimated Glomerular Filt Rate > 60; Glucose 83 mg/dL (65-110); Lipase 57 U/L (23-300); Potassium 3.6 mmol/L (3.4-5.0); Sodium 143 mmol/L (137-145)
[2022-08-24 13:37] LABS: Bacteria Urine Trace /hpf; Mucus Urine Rare /lpf; Squamous Epithelial Cell Urine Many /hpf (Few)
[2022-08-24 13:55] LABS: Add Urine Microscopic? YES
--- NOTE | 2022-08-24 14:19 | ED.ABDPAIN ---
HPI - Abdominal Pain General Chief Complaint: Abdominal Pain Stated Complaint: abd pain Time Seen by Provider: 08/24/22 14:17 Source: patient Mode of arrival: ambulatory Limitations: no limitations History of Present Illness HPI narrative: 51 years old -Bul[place]ian female presents with sudden onset left lower quadrant pain sharp, radiating to left flank area. Patient denies any fever, chills, nausea, vomiting or having similar symptoms. Patient had history of hypertension, does not smoke or drink or uses drugs. Denies any history of abdominal surgery. Related Data Home Medications Medication Instructions Recorded Confirmed amlodipine 5 mg tablet 10/23/20 paroxetine HCl 10 mg tablet mg PO 10/23/20 Allergies Allergy/AdvReac Type Severity Reaction Status Date / Time No Known Allergies Allergy Verified 08/24/22 13:22 Review of Systems Review of Systems: All systems reviewed & are unremarkable except as noted in HPI and below PMFSH Past Medical History Medical History Anemia GERD (gastroesophageal reflux disease) HTN (hypertension) Surgical History Surgical History No significant past surgical history Family History Family History Mother Hypertension Father Hypertension Patient's father is Social History Social History Smoking status: Never smoker Second hand tobacco smoke exposure: No Alcohol intake: never Gender identity (if verbalized by the patient): Female Spiritual care concerns: No Exam Narrative: General appearance: Well-developed, well-nourished Skin: Normal color Head: Normocephalic, nontraumatic Eyes: Clear conjunctiva ENT: Oropharynx normal, ears normal, nose normal Neck: Supple, nontender Chest and respiratory: Airway patent, no respiratory distress, no accessory muscle use Heart: Regular rate/rhythm Abdomen: Soft, slight tenderness left lower quadrant,, no organomegaly, quiet bowel sounds Vascular: Normal peripheral pulses, normal capillary refill. Musculoskeletal: Normal range of motion, nontender back Neurologic: Alert and oriented ?3, DELIVERY AND MAIL SORTER is normal as tested, no gross motor deficit Course Vital Signs Vital signs: Vital Signs Temperature 36.7 C 08/24/22 12:58 Pulse Rate 55 L 08/24/22 12:58 Respiratory Rate 18 08/24/22 12:58 Blood Pressure 155/79 H 08/24/22 12:58 Pulse Oximetry 100 08/24/22 12:58 Oxygen Delivery Room Air 08/24/22 12:58 Temperature 36.7 C 08/24/22 12:58 Pulse Rate 47 L 08/24/22 17:15 Respiratory Rate 13 08/24/22 17:15 Blood Pressure 134/79 08/24/22 17:01 Pulse Oximetry 99 08/24/22 17:15 Oxygen Delivery Room Air 08/24/22 12:58 MDM - Abdominal Pain Lab Data Result diagrams: 08/24/22 13:08 08/24/22 13:08 Labs: Lab Results 08/24/22 08/24/22 08/24/22 Range/Units 13:08 13:08 13:23 WBC 4.0 L (4.5-10.0) K/mm3 RBC 4.04 L (4.2-5.4) M/mm3 Hgb 12.1 (12.0-15.0) g/dL Hct 37.4 (37.0-47.0) % MCV 92.6 (80-100) fl MCH 30.0 (26-34) pg MCHC 32.4 (32-36) g/dl RDW 12.7 (11.5-14.5) % Plt Count 180 (150-375) k/mm3 MPV 10.7 H (7.4-10.4) fl Immature Gran % (Auto) 0.2 (0-0.5) % Neut % (Auto) 50.1 (45.5-73.1) % Lymph % (Auto) 40.1 (18.3-44.2) % [place] % (Auto) 6.4 (2.6-8.5) % Eos % (Auto) 2.7 (0-4.4) % Baso % (Auto) 0.5 (0.2-1.2) % Lymph # (Auto) 1.62 (0.9-3.2) K/mm3 [place] # (Auto) 0.3 (0
[2022-08-24] MEDS: HYDROmorphone HCL INJ (*CRX) 1 MG/ML SYR 0.5 MG IV PUSH (14:42)
[2022-08-24] MEDS: SODIUM CHLORIDE 0.9% IV 1,000 ML 999 ML IV CONT (14:42)
[2022-08-24] MEDS: ONDANSETRON INJ 4 MG/2 ML VIAL IV PUSH (14:42)
== END 2022-08-24 19:10 | disposition home or self-care (01) ==
PROVIDERS: Emergency Provider Emergency Medicine; PCP Emergency Medicine
DX: K20.90 Esophagitis, unspecified without bleeding (principal); K29.70 Gastritis, unspecified, without bleeding; I10 Essential (primary) hypertension; K21.9 Gastro-esophageal reflux disease without esophagitis; Z86.2 Personal history of diseases of the blood and blood-forming organs and certain disorders involving the immune mechanism
CPT/HCPCS: 36415; 74177; 80053; 81001; 83690; 85025; 96361; 96374; 96375; 99284; J1170; J2405; J7030; Q9967

== ENCOUNTER 2022-11-19 15:27 | Outpatient (CLI) | payer OTHER, SELFPAY ==
[2022-11-19 15:44] LABS: Basophils Percent Auto 0.4 % (0.2-1.2); Eosinophils Absolute Auto 0.1 K/mm3 (0-0.3); Hematocrit 32.4 % (37.0-47.0); Hemoglobin 10.6 g/dL (12.0-15.0); Immature Granulocyte Absolute 0.01 K/mm3 (0.00-0.031); Immature Granulocyte Percent A 0.2 % (0-0.5); Lymphocytes Absolute Auto 1.75 K/mm3 (0.9-3.2); Lymphocytes Percent Auto 37.9 % (18.3-44.2); Mean Corpuscular HGB Conc 32.7 g/dl (32-36); Mean Corpuscular Volume 91.8 fl (80-100); Monocytes Absolute Auto 0.3 K/mm3 (0.1-0.6); Monocytes Percent Auto 6.7 % (2.6-8.5); Neutrophils Absolute Auto 2.4 K/mm3 (1.3-6.7); Neutrophils Percent Auto 51.8 % (45.5-73.1); Platelet Count Result 166 k/mm3 (150-375); Red Blood Count 3.53 M/mm3 (4.2-5.4); Red Cell Distribution Width 12.5 % (11.5-14.5); White Blood Count 4.6 K/mm3 (4.5-10.0)
[2022-11-19 16:52] LABS: Anion Gap 6 mmol/L (8-16); Blood Urea Nitrogen 13 mg/dL (7-17); Calcium 8.7 mg/dL (8.4-10.2); Carbon Dioxide 30 mmol/L (22-30); Chloride 107 mmol/L (98-107); Estimated Glomerular Filt Rate > 60; Glucose 81 mg/dL (65-110); Potassium 3.8 mmol/L (3.4-5.0); Sodium 143 mmol/L (137-145)
[2022-11-19 17:51] LABS: Iron 67 ug/dL (37-170)
[2022-11-19 18:00] LABS: Percent Iron Saturation 24 % (20-50)
== END 2022-11-19 15:28 | disposition home or self-care (01) ==
PROVIDERS: PCP Emergency Medicine; Visit Provider Internal Medicine Hematology & Oncology
DX: D72.819 Decreased white blood cell count, unspecified (principal); D64.9 Anemia, unspecified
CPT/HCPCS: 36415; 80048; 82607; 82728; 83540; 83550; 85025

== ENCOUNTER 2023-03-11 11:19 | Outpatient (CLI) | payer OTHER, SELFPAY ==
[2023-03-11 11:44] LABS: Basophils Percent Auto 0.9 % (0.2-1.2); Eosinophils Absolute Auto 0.2 K/mm3 (0-0.3); Eosinophils Percent Auto 4.3 % (0-4.4); Hematocrit 37.7 % (37.0-47.0); Hemoglobin 12.4 g/dL (12.0-15.0); Lymphocytes Absolute Auto 1.48 K/mm3 (0.9-3.2); Lymphocytes Percent Auto 42.5 % (18.3-44.2); Mean Corpuscular HGB Conc 32.9 g/dl (32-36); Mean Corpuscular Hemoglobin 29.7 pg (26-34); Mean Corpuscular Volume 90.4 fl (80-100); Mean Platelet Volume 10.4 fl (7.4-10.4); Monocytes Absolute Auto 0.2 K/mm3 (0.1-0.6); Monocytes Percent Auto 6.6 % (2.6-8.5); Neutrophils Absolute Auto 1.6 K/mm3 (1.3-6.7); Neutrophils Percent Auto 45.7 % (45.5-73.1); Platelet Count Result 225 k/mm3 (150-375); Red Blood Count 4.17 M/mm3 (4.2-5.4); Red Cell Distribution Width 12.5 % (11.5-14.5); White Blood Count 3.5 K/mm3 (4.5-10.0)
[2023-03-11 18:02] LABS: Iron 139 ug/dL (37-170)
[2023-03-11 18:13] LABS: Percent Iron Saturation 48 % (20-50)
[2023-03-11 19:20] LABS: Folic Acid 4.3 ng/mL (2.76->20)
== END 2023-03-11 11:20 | disposition home or self-care (01) ==
LOC: ANHLAB 11:22
PROVIDERS: PCP Emergency Medicine; Visit Provider Internal Medicine Hematology & Oncology
DX: D64.9 Anemia, unspecified (principal)
CPT/HCPCS: 36415; 82607; 82728; 82746; 83540; 83550; 85025

== ENCOUNTER 2024-07-20 13:27 | Outpatient (CLI) | payer OTHER, SELFPAY ==
[2024-07-20 13:45] LABS: Basophils Percent Auto 0.7 % (0.2-1.2); Eosinophils Absolute Auto 0.3 K/mm3 (0-0.3); Eosinophils Percent Auto 6.8 % (0-4.4); Hematocrit 37.7 % (37.0-47.0); Hemoglobin 12.5 g/dL (12.0-15.0); Lymphocytes Percent Auto 35.1 % (18.3-44.2); Mean Corpuscular HGB Conc 33.2 g/dl (32-36); Mean Corpuscular Volume 90.4 fl (80-100); Mean Platelet Volume 10.1 fl (7.4-10.4); Monocytes Absolute Auto 0.3 K/mm3 (0.1-0.6); Monocytes Percent Auto 7.7 % (2.6-8.5); Neutrophils Absolute Auto 2.1 K/mm3 (1.3-6.7); Neutrophils Percent Auto 49.7 % (45.5-73.1); Platelet Count Result 204 k/mm3 (150-375); Red Blood Count 4.17 M/mm3 (4.2-5.4); Red Cell Distribution Width 12.2 % (11.5-14.5); White Blood Count 4.3 K/mm3 (4.5-10.0)
== END 2024-07-20 13:28 | disposition home or self-care (01) ==
LOC: ANHLAB 13:29
PROVIDERS: PCP Emergency Medicine; Visit Provider Internal Medicine Hematology & Oncology
DX: D64.9 Anemia, unspecified (principal)
CPT/HCPCS: 36415; 85025

== ENCOUNTER 2025-07-20 10:44 | Outpatient (CLI) | payer OTHER, SELFPAY ==
[2025-07-20 11:04] LABS: Hematocrit 35.9 % (37.0-47.0); Hemoglobin 11.9 g/dL (12.0-15.0); Mean Corpuscular HGB Conc 33.1 g/dl (32-36); Mean Corpuscular Hemoglobin 30.0 pg (26-34); Mean Corpuscular Volume 90.4 fl (80-100); Platelet Count Result 198 k/mm3 (150-375); Red Blood Count 3.97 M/mm3 (4.2-5.4); White Blood Count 3.5 K/mm3 (4.5-10.0)
[2025-07-20 11:08] LABS: Blood Urea Nitrogen 8 mg/dL (8-26); Carbon Dioxide 29 mmol/L (22-30); Chloride 103 mmol/L (98-109); Estimated Glomerular Filt Rate 58; Glucose 100 mg/dL (70-105); Ionized Calcium (POC) 1.24 mmol/L (1.11-1.31); Potassium 3.5 mmol/L (3.5-4.9); Sodium 142 mmol/L (138-146)
--- OUTSIDE RECORDS SUMMARY | 2025-07-20 11:17 | XMS_ITS | Encounter Summary ---
Author Organization [facility] Health Address [facility] [facility] [place] [address] Care Team Providers Care Service Parts Coordinator Name Role Phone Kristen Christina MD Primary Care Provider [phone] Encounter Details Date Type Department Care Team (Late st Contact Info) Description 07/04/2025 Results Follow-Up [facility] [place] [address] [facility], [place] [address] Cindi Neff, STEWARD/STEWARDESS ROOM-SOCIAL WORKER ASSISTANT [address] [place] [address] Social History Tobacco Use Types Packs/Day Years Used Date Smoking Tobacco: Never Smokeless Tobacco: Never Alcohol Use Standard Drinks/Week Comments Never 0 (1 standard drink = 0.6 oz pur e alcohol) PHQ-2 Answer Date Recorded Patient Health Questionnaire-2 Score 0 06/27/2024 Comments No Sex and Gender Information Value Date Recorded Sex Assigned at Not on file Legal Sex Female 5:21 PM NEW VEHICLE SALES CONSULTANT Gender Identity Not on file Sexual Orientation Not on file documented as of this encounter Plan of Treatment Upcoming Encounters Date Type Department Care Team (Late st Contact Info) Description 09/18/2025 8:30 AM NEW VEHICLE SALES CONSULTANT Office Visit [facility] - [place] [address] [facility], [place] [address] [place]-Cindi Durant, STEWARD/STEWARDESS ROOM-SOCIAL WORKER ASSISTANT [address] [place] [address] documented as of this encounter Goals Goal Patient Goal Type Associated Problems Recent Progress Patient-Stated? Author Medication Management General On track( 10:59 AM CDT) No Felicia Daniels, RN Note: Expected end date: ongoing Interventions: Take all medications as prescribed Let your doctor know right away about any changes in your medications Make sure to request a refill of your medication at least one week prior to your last dose Safety General On track( 10:59 AM CDT) No Brooklynn Ingram, RN Note: Expected end date: ongoing Interventions: Wear glasses/hearing aid Keep personal items within easy reach Use some light at night in your room documented as of this encounter Visit Diagnoses Not on filedocumented in this encounter Care Teams Service Parts Coordinator Relationship Specialty Start Date End Date Kristen Christina MD [address] [place] [address] [address] DIV [place] [phone] PCP - General Internal Medicine 02/24/23 documented as of this encounter
--- OUTSIDE RECORDS SUMMARY | 2025-07-20 11:17 | XMS_ITS | Encounter Summary ---
Author Organization [facility] Health Address [address] [facility] [place] [address] Care Team Providers Care Integration Consultant Name Role Phone Amilcar Oneill MD Primary Care Provider [phone] Polo Evans MD Primary Care Provider [phone] Juan Jose Bolden MECHANICAL ENGINEERING DRAFTSPERSON-AUTOMOTIVE GENERAL MANAGER Primary Care Provide r Polo Evans MD Primary Care Provider [phone] Juan Jose Bolden MECHANICAL ENGINEERING DRAFTSPERSON-AUTOMOTIVE GENERAL MANAGER Primary Care Provide r Kristen Christina MD Primary Care Provider Kristen Christina MD Unavailable [phone] Encounter Details Date Type Department Care Team (Late st Contact Info) Description 08/01/2019 Lab Requisition [facility] [address] [place] [phone] Social History Tobacco Use Types Packs/Day Years Used Date Smoking Tobacco: Never Assessed Comments Unknown Sex and Gender Information Value Date Recorded Sex Assigned at Not on file Legal Sex Female 5:21 PM HAND CLOTH CUTTER Gender Identity Not on file Sexual Orientation Not on file documented as of this encounter Plan of Treatment Upcoming Encounters Date Type Department Care Team (Late st Contact Info) Description 09/18/2025 8:30 AM HAND CLOTH CUTTER Office Visit [facility] - [place] [address] [facility], [place] [address] Cindi Neff, MECHANICAL ENGINEERING DRAFTSPERSON-AUTOMOTIVE GENERAL MANAGER [address] [place] [address] documented as of this encounter Visit Diagnoses Not on filedocumented in this encounter Additional Health Concerns Infection Onset Date Last Indicated Resolved Time COVID-19 Under Investigation 09/16/2022 09/16/2022 09/17/2022 6:11 PM HAND CLOTH CUTTER COVID-19 Confirmed 09/16/2022 09/16/2022 4:33 AM HAND CLOTH CUTTER documented as of this encounter Care Teams Integration Consultant Relationship Specialty Start Date End [place]ilcar [place]ill [place] [address] [address] PCP - General 07/27/12 02/26/20 Polo Evans MD [address] [place] [address] PCP - General 02/27/20 05/21/21 Juan Jose Bolden MECHANICAL ENGINEERING DRAFTSPERSON-AUTOMOTIVE GENERAL MANAGER [address] [place] [address] PCP - General 05/22/21 06/26/22 Polo Evans MD [address] [place] [address] PCP - General Family Medicine 06/27/22 09/01/22 Juan Jose Bolden APRN-AUTOMOTIVE GENERAL MANAGER [address] [place] [address] PCP - General 09/02/22 02/23/23 Kristen Christina MD [address] [facility] [address] [place] [address] PCP - General Internal Medicine 02/24/23 Kristen Christina MD [address] DIV OF [facility] [place] [address] PCP - Attributed-[facility] STL 02/16/23 12/06/23 documented as of this encounter
--- OUTSIDE RECORDS SUMMARY | 2025-07-20 11:17 | XMS_ITS | Encounter Summary ---
Author Organization [facility] Health Address [address] [facility] [place] [address] Care Team Providers Care Machine Guide Base Winder Name Role Phone Juan Jose Bolden Primary Care Provide r Kristen Christina MD Primary Care Provider [phone] Kristen Christina MD Unavailable [phone] Encounter Details Date Type Department Care Team (Late st Contact Info) Description 09/16/2022 Lab Requisition [facility] MAIN LAB [address] [place] [address] Alexander Lipscomb APRN-CNP [address] [address] Contact with and (suspected) exposure to other viral communicable diseases Social History Tobacco Use Types Packs/Day Years Used Date Smoking Tobacco: Never Smokeless Tobacco: Never Alcohol Use Standard Drinks/Week Comments Not Currently 0 (1 standard drink = 0.6 oz pur e alcohol) PHQ-2 Answer Date Recorded PHQ2 TOTAL SCORE 0 05/28/2021 Comments No Sex and Gender Information Value Date Recorded Sex Assigned at Not on file Legal Sex Female 5:21 PM MEDICAL CONCIERGE Gender Identity Not on file Sexual Orientation Not on file documented as of this encounter Plan of Treatment Upcoming Encounters Date Type Department Care Team (Late st Contact Info) Description 09/18/2025 8:30 AM MEDICAL CONCIERGE Office Visit [facility] - [place] [address] [facility], [place] [address] Bryce-Cindi Durant, METAL STAMPING MACHINE OPERATOR-SUPERVISOR WATERPROOFING [address] [place] [phone] documented as of this encounter Goals Goal [...] your room documented as of this encounter Procedures Procedure Name Priority Date/Time Associated Diagnosis Comments SARS-COV-2 (COVID-19)+INFLUEN ZA A+B PCR Routine 09/16/2022 12:30 PM MEDICAL CONCIERGE Contact with and (suspected) exposure to other viral communicable diseases documented in this encounter Results * (ABNORMAL) SARS-COV-2 (COVID-19)+INFLUENZA A+B PCR (09/16/2022 12:30 PM MEDICAL CONCIERGE) COVID-19 PCR Detected(A) Not detected 09/17/2022 6:11 PM MEDICAL CONCIERGE [facility] Influenza A PCR Not detected Not detected 09/17/2022 6:11 PM MEDICAL CONCIERGE [facility] Influenza B PCR Not detected Not detected 09/17/2022 6:11 PM MEDICAL CONCIERGE [facility] Microbiology SPECIMEN FROM NASOPHARYNGEAL STRUCTURE / Unknown Collection / Unknown 09/16/2022 12:30 PM MEDICAL CONCIERGE 09/16/2022 4:09 PM MEDICAL CONCIERGE Narrative [facility] - 09/17/2022 6:11 PM MEDICAL CONCIERGE This nucleic acid amplification assay has been authorized by the Food and Drug administration (FDA) under an Emergency Use Authorization (EUA). This test is only authorized for the duration of time the declaration that circumstances exist justifying the authorization of emergency use of in vitro diagnostic tests for detection of SARS-CoV-2 virus and/or diagnosis of COVID-19 infection under section 564(b)(1) of the Act, 21 U.S.C 360bbb-3 (b)(1), unless the authorization is terminated or revoked sooner. Fact Sheets for this EUA assay are available upon request. [facility] NICHOL DONIS Final Result [facility] [address] [phone] documented in this encounter Visit Diagnoses Diagnosis Contact with and (suspected) exposure to other viral communicable diseases documented in this encounter Additional Health Concerns Infection Onset Date Last Indicated Resolved Time COVID-19 Under Investigation 09/16/2022 09/16/2022 09/17/2022 6:11 PM MEDICAL CONCIERGE COVID-19 Confirmed 09/16/2022 09/16/2022 4:33 AM MEDICAL CONCIERGE documented as of this encounter Care Teams Machine Guide Base Winder Relationship Specialty Start Date End Date Juan Jose Bolden APRN-SUPERVISOR WATERPROOFING [address] [place] [phone] PCP - General 09/02/22 02/23/23 Kristen Christina MD [address] [facility] [place] [place] [address] PCP - General Internal Medicine 02/24/23 Kristen Christina MD [address] [place] [address] PCP - Attributed-[facility] STL 02/16/23 12/06/23 documented as of this encounter
--- OUTSIDE RECORDS SUMMARY | 2025-07-20 11:17 | XMS_ITS | Encounter Summary ---
Author Organization [facility] Health Address [address] [facility] [place] [address] Care Team Providers Care Regulatory Leader Name Role Phone Amilcar Oneill MD Primary Care Provider [phone] Polo Evans MD Primary Care Provider [phone] Juan Jose Bolden SINTER MACHINE OPERATOR-TEXTILE BAG SEWER Primary Care Provide r Polo Evans MD Primary Care Provider [phone] Juan Jose Bolden SINTER MACHINE OPERATOR-TEXTILE BAG SEWER Primary Care Provide r Kristen Christina MD Primary Care Provider [phone] Kristen Christina MD Unavailable [phone] Encounter Details Date Type Department Care Team (Late st Contact Info) Description 08/19/2018 Lab Requisition [facility] [address] [place] [phone] Unlisted, Ordering Provider, Social History Tobacco Use Types Packs/Day Years Used Date Smoking Tobacco: Never Assessed Comments Unknown Sex and Gender Information Value Date Recorded Sex Assigned at Not on file Legal Sex Female 5:21 PM PEST CONTROL WORKER HELPER Gender Identity Not on file Sexual Orientation Not on file documented as of this encounter Plan of Treatment Upcoming Encounters Date Type Department Care Team (Late st Contact Info) Description 09/18/2025 8:30 AM PEST CONTROL WORKER HELPER Office Visit [facility] - [place] [address] [facility], [place] [address] Aishwarya Cindi, SINTER MACHINE OPERATOR-TEXTILE BAG SEWER [address] [place] [phone] documented as of this encounter Procedures Procedure Name Priority Date/Time Associated Diagnosis Comments GLUCOSE VITALITY Routine 08/19/2018 12:1 0 PM CDT HEMOGLOBIN A1C Routine 08/19/2018 12:10 PM CDT LIPID PROFILE Routine 08/19/2018 12:10 PM CDT documented in this encounter Results * HEMOGLOBIN A1C (08/19/2018 12:10 PM CDT) Hemoglobin A1c 5.6 4.4 - 6.3 % 08/19/2018 3:19 PM CDT [facility] Estimated Average Glucose 114 mg/dL 08/19/2018 3:19 PM CDT [facility] Comment: HbA1c Interpretation: Treatment target values recommended by ADA and other clinical organizations should be used to evaluate metabolic control in patients. Treatment Target Values: Normal : < 5.7% Pre-diabetes: 5.7-6.4% Diabetes: Equal to or greater than 6.5% Reference: [place] Diabetes Association Standards of Care in Diabetes -2014 In patients 70 years and older consider HbA1c target range of 7.0-7.5% Reference: Diabetes Mellitus in Older People: Position Statement on behalf of the International Association of Gerontology and Geriatrics (IAGG), the Diabetes Working Green Party for Older People (EDWPOP), and the International Task Force of Experts in Diabetes. Lawrence Reece, et al. J [place] [employer] Association. 2012 Test results diagnostic of diabetes should be repeated for confirmation. The TosAtlantium G8 assay for the measurement of HbA1c is a National Glycohemoglobin Standardization Program (NGSP)certified method. Results for patients with HbE disease should be interpreted with caution as this hemoglobinopathy has been shown to interfere with the Tosoh G8 assay. Blood 08/19/2018 12:1 0 PM CDT 08/19/2018 2:07 PM CDT us Ordering Provider Unlisted MD LAB - CHEMISTRY OR DERABLES Final Result Performing Organization Address [facility]/ZIP Co de Phone Number [address] [phone] * (ABNORMAL) LIPID PROFILE (08/19/2018 12:10 PM CDT) [facility] Cholesterol Total 173 <200 mg/dL 08/19/2018 2:37 PM CDT [facility] HDL 62 >40 mg/dL 08/19/2018 2:37 PM CDT [facility] Comment: ATP III Classification of HDL Cholesterol: <40 mg/dL: Considered a major risk factor. >60 mg/dL: Considered a negative risk factor. LDL Calculated 101(H) <100 mg/dL 08/19/2018 2:37 PM CDT [facility] Comment: ATP III Classification of LDL Cholesterol: <100 mg/dL: Optimal 100 - 129 mg/dL: Near Optimal/Above Optimal 130 - 159 mg/dL: Borderline High 160 - 189 mg/dL: High >190 mg/dL: Very High Triglycerides 50 <150 mg/dL 08/19/2018 2:37 PM T [facility] Comment: ATP III Classification of Triglycerides: <150 mg/dL: Normal 150 - 199 mg/dL: Borderline High 200 - 400 mg/dL: High >500 mg/dL: Very High Blood 08/19/2018 12:1 0 PM CDT 08/19/2018 2:07 PM CDT us Ordering Provider Unlisted MD LAB - CHEMISTRY OR DERABLES Final Result Performing Organization Address [facility]/ZIP Co de Phone Number [address] [phone] * GLUCOSE VITALITY (08/19/2018 12:10 PM CDT) Glucose 82 70 - 115 mg/dL 08/19/2018 2:32 PM CDT [facility] Blood 08/19/2018 12:1 0 PM CDT 08/19/2018 2:07 PM CDT us Ordering Provider Unlisted MD LAB - CHEMISTRY OR DERABLES Final Result Performing Organization Address City/State/[facility] Co de Phone Number [address] [phone] documented in this encounter Visit Diagnoses Not on filedocumented in this encounter Additional Health Concerns Infection Onset Date Last Indicated Resolved Time COVID-19 Under Investigation 09/16/2022 09/16/2022 09/17/2022 6:11 PM PEST CONTROL WORKER HELPER COVID-19 Confirmed 09/16/2022 09/16/2022 4:33 AM PEST CONTROL WORKER HELPER documented as of this encounter Care Teams Regulatory Leader Relationship Specialty Start Date End Date Amilcar Oneill MD [address] [place] [address] PCP - General 07/27/12 02/26/20 Polo Evans MD [address] [place] [address] PCP - General 02/27/20 05/21/21 Juan Jose Bolden APRN-TEXTILE BAG SEWER [address] [place] [address] PCP - General 05/22/21 06/26/22 Polo Evans MD [address] [place] [address] PCP - General Family Medicine 06/27/22 09/01/22 Juan Jose Bolden APRN-TEXTILE BAG SEWER [address] [place] [address] PCP - General 09/02/22 02/23/23 Kristen Christina MD [address] [place] [phone] PCP - General Internal Medicine 02/24/23 Kristen Christina MD [address] DIV OF [facility] [place] [address] PCP - Attributed-[facility] EHP STL 02/16/23 12/06/23 documented as of this encounter
--- OUTSIDE RECORDS SUMMARY | 2025-07-20 11:17 | XMS_ITS | Clinical Summary ---
Author Organization [facility] Address [address] [place] [address] Care Team Providers Care Machine Bunch Maker Name Role Phone Kristen Christina MD Primary Care Provider Source Comments [facility],non-owned Affiliates and Associated Physician Practices is amultiple site organization consisting of ambulatory clinics and hospital sitesin [place], [place], [place] and [place]. This disclosure is being madepursuant to the Care Everywhere program and may not contain all information available regarding this patient. Last updated 18.[facility] Allergies No known active allergies Medications * Be aware that medications may not be up to date on this document. Alwaysverify current medications with the patient. amLODIPine (Norvasc) 10 MG tabletIndications :Essential (primary) hypertension Take 1 (one) tablet by mouth once daily 90 tablet 4 4 Active lisinopril (Prinivil; Zestril) 30 MG tabletIndications :Essential (primary) hypertension Take 1 (one) tablet by mouth once daily 90 tablet 4 4 Active Misc Natural Products (BEET ROOT PO) Take 1 Each by mouth once daily Active MILK THISTLE PO Take 1 capsule by mouth once daily Active omeprazole (PriLOSEC) 40 MG capsuleIndication s:Gastroesophagea l reflux disease without esophagitis Take 1 (one) capsule by mouth once daily 30 capsule 5 Active vitamin D, ergocalciferol, (Drisdol) 1.25 MG (44521 UT) capsuleIndication s:Vitamin D deficiency Take 1 (one) capsule by mouth every 7 days (once a week) 12 capsule 5 Active scopolamine (Transderm-Scop) 1 MG patchIndications: Motion sickness, initial encounter Apply 1 (one) patch to skin every 72 hours as needed (motion sickness) Apply 12 hours before start of cruise. Replace every 3 days if needed. 2 patch 4 06/07/20 24 Discontinu ed(No Pharm No AVS) Active Problems Problem Noted Date Diagnosed Date Leukopenia 03/10/2022 Essential hypertension 01/17/2021 Encounters Date Type Department Care Team Description 07/04/2025 Orders Only [facility] - GI [address] [place] [address] Cindi Neff APRN-CNP Vitamin D deficiency 07/04/2025 Results Follow-Up [facility] - GI [address] [place] [address] Cindi Neff APRN-CNP 06/30/2025 9:50 AM CDT - 06/30/2025 11:59 PM CDT Hospital Encounter [facility] [address] [place] [address] Cindi Neff APRN-CNP Discharge Disposition: Home or Self Care 06/30/2025 Travel 06/21/2025 11:00 AM CDT Office Visit [facility] - GI [address] [place] [address] Linda, Elsy Y, MD Coke[place]At[place]well, Cindi, SUPERVISOR COMPOSING ROOM-NETWORK FIELD ENGINEER Gastroesophageal reflux disease without esophagitis (Primary Dx); Intestinal malabsorption, unspecified type (HCC); Obesity (BMI 30-39.9) 06/21/2025 Travel from Last 3 Months Immunizations Immunization Administration Dates Next Due Nanosphere primary monoval ent 12+ yr 0.3mL Purple cap 11/30/2020,11/09/2020 HEP B VACCINE, ADULT 3 DOSE 02/29/2024, 4 INFLUENZA VACCINE 07/19/2023,08/18/2022,07/19/20 20 INFLUENZA VACCINE, QUADR. (A FLURIA, FLUZONE QUADRIVALENT; 6MO+) (IIV4) 09/18/2021 INFLUENZA VACCINE, QUADR. (F LUZONE; FLULAVAL; FLUARIX; AFLURIA QUADRIVALENT; 6MO+), 0.5 ML (IIV4) 08/03/2024 PNEUMOCOCCAL PPSV23 10/03/2021 TDAP (7yrs+) 05/28/2021 Zoster Hzv Vacc Recombinant Inj Im 12/10/2021, Family History Medical History Relation Name Comments Hypertension Brother None Known Daughter 1 None Known Daughter 2 Hypertension Father Cancer - Breast Maternal Aunt 1 Cancer - Breast Maternal Aunt 2 Cancer Maternal Grandfather unknown Cancer - Breast Maternal Grandmother None Known Paternal Grandfather Cancer - Breast Paternal Grandmother Hypertension Sister 1 Diabetes - Type 2 Sister 2 None Known Son Relation Name Status Comments Brother Alive Daughter 1 Alive Daughter 2 Alive Father Maternal Aunt 1 Maternal Aunt 2 Maternal Grandfather Maternal Grandmother Mother Alive Paternal Grandfather Paternal Grandmother Sister 1 Alive Sister 2 Alive Son Alive Social History Tobacco Use Types Packs/Day Years Used Date Smoking Tobacco: Never Smokeless Tobacco: Never Tobacco Cessation:Counseling Given: Not Answered Alcohol Use Standard Drinks/Week Comments Never 0 (1 standard drink = 0.6 oz pur e alcohol) PHQ-2 Answer Date Recorded Patient Health Questionnaire-2 Score 0 06/27/2024 Comments No Sex and Gender Information Value Date Recorded Sex Assigned at Not on file Legal Sex Female 5:21 PM SEVERITY OF ILLNESS COORDINATOR Gender Identity Not on file Sexual Orientation Not on file Last Filed Vital Signs Vital Sign Reading Time Taken Comments Blood Pressure 121/83 06/21/2025 11:12 AM CDT Pulse 56 06/21/2025 11:12 AM CDT Temperature 36.4 C (97.6 F) 06/21/2025 11:12 AM CDT Respiratory Rate 18 03/05/2022 8:47 AM CDT Oxygen Saturation 100% 06/21/2025 11:12 AM CDT Inhaled Oxygen Concentration - - Weight 71.7 kg (158 lb) 06/21/2025 11:12 AM CDT Height 149.9 cm (4' 11) 06/21/2025 11:12 AM CDT Body Mass Index 31.91 06/21/2025 11:12 AM CDT Plan of Treatment Upcoming Encounters Date Type Department Care Team (Late st Contact Info) Description 09/18/2025 8:30 AM SEVERITY OF ILLNESS COORDINATOR Office Visit [facility] - GI [address] [facility] [place] [phone] Bryce-Cindi Durant, SUPERVISOR COMPOSING ROOM-NETWORK FIELD ENGINEER [address] [place] [phone] Health Maintenance Due Date Last Done Comments COLOGUARD (AGES 45-75) - COLON CA SCREENING [address] COLONOGRAPHY - COLON CA SCREENING 1969 FIT - COLON CA SCREENING 1969 FLEX SIG - COLON CA SCREENING 1969 PNEUMOCOCCAL VACCINE 50+ (2 of 2 - PCV) 10/03/2022 10/03/2021 HEPATITIS B VACCINE (3 of 3 - 19+ 3-dose series) 07/10/2024 02/29/2024, 01/08/2024 DEPRESSION SCREENING 10/19/2024 02/29/2024, 11/25/19 23 MAMMOGRAM 10/28/2024 10/28/2022, 09/19, 07/26/2020 COVID-19 VACCINE ( season) 2025 08/21/2021, 11/30/2020, 11/09/2020 INFLUENZA VACCINE (#1) 2025 , 07/19/2023, 08/18/2022, Additional history exists PAP SMEAR 01/03/2027 01/04/2024 (Done Outside Per Patient), 03/26/2021 (Done Outside Per Patient) LIPID TESTING 01/29/2027 01/29/2022, 1110/2017, 08/27/2017, Additional history exists SCREENING FOR DIABETES 06/30/2028 , 07/19/2024, 02/23/2024, Additional history exists COLONOSCOPY - COLON CA SCREENING 01/25/2031 01/25/2021 (Done Outside Per Patient) Colorectal Cancer Screening 01/25/2031 DTAP/TDAP/TD VACCINES (2 - Td or Tdap) 05/28/2031 05/28/2021 HEPATITIS C SCREENING Completed 01/17/2021 HIV SCREENING Completed 01/17/2021 ZOSTER VACCINE Completed 12/10/2021, 09/18/2021 HIB VACCINE Aged Out No longer eligi ble based on patient's age to complete this topic HPV VACCINE Aged Out No longer eligi ble based on patient's age to complete this topic MENINGOCOCCAL (Group B) VACCINE SHARED DECISION-MAKING Aged Out No longer eligible based on patient's age to complete this topic MENINGOCOCCAL GROUPS A/C/Y/W VACCINE Aged Out No longer eligible based on patient's age to complete this topic Goals Goal Patient Goal Type Associated Problems [...] On track( 10:59 AM CDT) No Brooklynn Ingram RN Note: Expected end date: ongoing Interventions: Wear glasses/hearing aid Keep personal items within easy reach Use some light at night in your room Procedures Procedure Name Priority Date/Time Associated Diagnosis Comments NM H PYLORI BREATH TEST Routine 06/30/2025 10:11 AM CDT Gastroesophageal reflux disease without esophagitis VITAMIN D 25-HYDROXY Routine 06/30/2025 6:49 AM CDT Gastroesophageal reflux disease without esophagitis Intestinal malabsorption, unspecified type (HCC) VITAMIN B12 Routine 06/30/2025 6:49 AM CDT Gastroesophageal reflux disease without esophagitis Intestinal malabsorption, unspecified type (HCC) FOLATE Routine 06/30/2025 6:49 AM CDT Gastroesophageal reflux disease without esophagitis Intestinal malabsorption, unspecified type (HCC) IRON + TIBC + FERRITIN Routine 6:49 AM CDT Gastroesophageal reflux disease without esophagitis Intestinal malabsorption, unspecified type (HCC) COMPREHENSIVE METABOLIC PANEL Routine 06/30/2025 6:49 AM CDT Gastroesophageal reflux disease without esophagitis Intestinal malabsorption, unspecified type (HCC) CBC W AUTO DIFFERENTIAL Routine 06/30/2025 6:49 AM CDT Gastroesophageal reflux disease without esophagitis Intestinal malabsorption, unspecified type (HCC) MAMMO BILAT SCREENING W JUDY Routine 10/28/2022 4:14 PM SEVERITY OF ILLNESS COORDINATOR Breast cancer screening by mammogram LIPID PROFILE Routine 01/29/2022 7:54 AM CDT Healthcare maintenance HEPATITIS C ANTIBODY Routine 01/17/2021 10:46 AM CDT Leukopenia, unspecified type HIV-1 HIV-2 ANTIGEN/ANTIBODY Routine 01/17/2021 10:46 AM CDT Leukopenia, unspecified type from Last 3 Months or Most Recently Relevant to Health Maintenance Results * NM H Pylori Breath Test (06/30/2025 10:11 AM CDT) Anatomical Region Laterality Modality Nuclear Medicine 06/30/2025 10:1 3 AM CDT Impressions 07/03/2025 4:30 PM CDT IMPRESSION: Negative for presence of active H. pylori infection. > Dictated by Tyler Goncalves 06/30/2025 10:13 AM > Dictated by Ball Shagger Tigre Levine DO have personally reviewed and interpreted this examination/study. > Interpreting Provider: Tigre Gomez DO on 07/03/2025 4:30 PM Narrative 07/03/2025 4:30 PM CDT PROCEDURE: NM H PYLORI BREATH TEST DATE/TIME OF EXAM: 06/30/2025 10:11 AM Indication: K21.9: Gastroesophageal reflux disease without esophagitis COMPARISON:None. HISTORY: 54 years old female patient with gastroesophageal reflux disease without esophagitis. TECHNIQUE: A capsule containing 1 uCi C-14 Urea was ingested and breath sample obtained 10 minutes later. Patient's BMI is 31.9 kg/m . FINDINGS: Background corrected calculations on the sample produced 0 DPM. Negative < 50 DPM Indeterminate 50-199 DPM Positive > 200 DPM Procedure Note Tigre Gomez DO - 07/03/2025 PROCEDURE: NM H PYLORI BREATH TEST DATE/TIME OF EXAM: 06/30/2025 10:11 AM Indication: K21.9: Gastroesophageal reflux disease without esophagitis COMPARISON:None. HISTORY: 54 years old female patient with gastroesophageal refluxdisease without esophagitis. TECHNIQUE: A capsule containing 1 uCi C-14 Urea was ingested and breath sample obtained 10 minutes later. Patient's BMI is 31.9 kg/m . FINDINGS: Background corrected calculations on the sample produced 0DPM. Negative < 50 DPM Indeterminate 50-199 DPM Positive > 200 DPM IMPRESSION: Negative for presence of active H. pylori infection. > Dictated by Tyler Goncalves 06/30/2025 10:13 AM > Dictated by Ball Shagger I, Tigre Gomez DO have personally reviewed and interpreted this examination/study. > Interpreting Provider: Tigre Gomez DO on 07/03/2025 4:30 PM Cindi Neff SUPERVISOR COMPOSING ROOM-NETWORK FIELD ENGINEER NM ORDERABLES Final Result * IRON + TIBC + FERRITIN (06/30/2025 6:49 AM CDT) Iron 78 45 - 160 mcg/dL [facility] TIBC 282 250 - 450 mcg/dL (calc) [facility] % Saturation 28 16 - 45 % (calc) [facility] Ferritin 60 16 - 232 ng/mL [facility] Comment: Test Performed at: [place] [address] [facility] [address] TAMI GUILLERMO MD Blood BLOOD SPECIMEN / Unknown 06/30/2025 6:49 AM CDT 06/30/2025 6:49 AM CDT Cindi Neff SUPERVISOR COMPOSING [facility] LAB - CHEMISTRY ORDERABLES Final Result Performing Organization Address [facility] de Phone Number [facility] [phone] [place] [phone] * (ABNORMAL) VITAMIN D 25-HYDROXY (06/30/2025 6:49 AM CDT) Pathologist [facility] Vitamin D, 25 Hydroxy 15(L) 30 - 100 ng/mL [facility] Comment: Vitamin D Status 25-OH Vitamin D: Deficiency: <20 ng/mL Insufficiency: 20 - 29 ng/mL Optimal: > or = 30 ng/mL For 25-OH Vitamin D testing on patients on D2-supplementation and patients for whom quantitation of D2 and D3 fractions is required, the QuestAssureD(TM) 25-OH VIT D, (D2,D3), LC/MS/MS is recommended: order code 54979 (patients >2yrs). See Note 1 Note 1 For additional information, please refer to http://education.[employer]/faq/VZI862 (This link is being provided for informational/ educational purposes only.) Test Performed at: [facility] [place] [place] [address] TAMI GUILLERMO MD Blood BLOOD SPECIMEN / Unknown 06/30/2025 6:49 AM CDT 06/30/2025 6:49 AM CDT Cindi Neff [facility] LAB - CHEMISTRY ORDERABLES Final Result Performing Organization Address [facility] de Phone Number [facility] [address] [place] [address] * (ABNORMAL) CBC W/ DIFFERENTIAL (06/30/2025 6:49 AM CDT) White Blood Cell Count 3.7(L) 3.8 - 10.8 Thousand/u L [facility] RBC 4.06 3.80 - 5.10 Million/uL [facility] Hemoglobin 12.1 11.7 - 15.5 g/dL [facility] Hematocrit 38.1 35.0 - 45.0 % [facility] MCV 93.8 80.0 - 100.0 fL [facility] MCH 29.8 27.0 - 33.0 pg [facility] MCHC 31.8(L) 32.0 - 36.0 g/dL [facility] Comment: For adults, a slight decrease in the calculated MCHC value (in the range of 30 to 32 g/dL) is most likely not clinically significant; however, it should be interpreted with caution in correlation with other red cell parameters and the patient's clinical condition. RDW 12.8 11.0 - 15.0 % [facility] Platelet Count 216 140 - 400 Thousand/u L [facility] MPV 10.9 7.5 - 12.5 fL [facility] Neutrophil Absolute 1650 1500 - 7800 cells/uL [facility] Lymphocytes Absolute 1532 850 - 3900 cells/uL [facility] Absolute Monocytes 300 200 - 950 cells/uL [facility] Eosinophils Absolute 189 15 - 500 cells/uL [facility] Basophils Absolute 30 0 - 200 cells/uL [facility] Granulocytes % 44.6 % [facility] Lymphocytes % 41.4 % [facility] Monocytes % 8.1 % [facility] Eosinophils % 5.1 % [facility] Basophils % 0.8 % [facility] Comment: Test Performed at: [facility] [address] [place] [address] TAMI GUILLERMO MD Blood BLOOD SPECIMEN / Unknown 06/30/2025 6:49 AM CDT 06/30/2025 6:49 AM CDT Cindi Neff SUPERVISOR COMPOSING ROOM-NETWORK FIELD ENGINEER LAB - HEMATOLOGY ORDERABLES Final Result [facility] [address] [place] [address] * COMPREHENSIVE METABOLIC PANEL (06/30/2025 6:49 AM CDT) Pathologist [facility] Glucose 88 65 - 99 mg/dL [facility] Comment: Fasting reference interval BUN 12 7 - 25 mg/dL [facility] Creatinine 0.79 0.50 - 1.03 mg/dL [facility] eGFR by Cystatin C 88 > OR = 60 mL/min/1. 73m2 [facility] BUN/Creatinine Ratio SEE NOTE: 6 - 22 (calc) [facility] Comment: Not Reported: BUN and Creatinine are within reference range. Sodium 143 135 - 146 mmol/L [facility] Potassium 4.0 3.5 - 5.3 mmol/L [facility] Chloride 108 98 - 110 mmol/L [facility] CO2 28 20 - 32 mmol/L [facility] Calcium 9.2 8.6 - 10.4 mg/dL [facility] Protein Total 6.5 6.1 - 8.1 g/dL [facility] Albumin 4.0 3.6 - 5.1 g/dL [facility] Globulin Total 2.5 1.9 - 3.7 g/dL (calc) [facility] Albumin/Globulin Ratio 1.6 1.0 - 2.5 (calc) [facility] Bilirubin Total 0.5 0.2 - 1.2 mg/dL [facility] Alkaline Phosphatase 82 37 - 153 U/L [facility] AST 16 10 - 35 U/L [facility] ALT 12 6 - 29 U/L [facility] Comment: Test Performed at: [place] [address] TAMI GUILLERMO MD Blood BLOOD SPECIMEN / Unknown 06/30/2025 6:49 AM CDT 06/30/2025 6:49 AM CDT Cindi Neff SUPERVISOR COMPOSING ROOM-NETWORK FIELD ENGINEER LAB - CHEMISTRY ORDERABLES Final Result [facility] [address] [place] [address] * FOLATE (06/30/2025 6:49 AM CDT) Folate 11.1 ng/mL [facility] Comment: Reference Range Low: <3.4 Borderline: 3.4-5.4 Normal: >5.4 Test Performed at: [place] [address] TAMI GUILLERMO MD Blood BLOOD SPECIMEN / Unknown 06/30/2025 6:49 AM CDT 06/30/2025 6:49 AM CDT Cindi Neff SUPERVISOR COMPOSING ROOM-[facility] LAB - CHEMISTRY ORDERABLES Final Result Performing Organization Address City/[facility]/ZIP Co de Phone Number [facility] [address] [place] [address] * VITAMIN B12 (06/30/2025 6:49 AM CDT) Vitamin B12 404 200 - 1100 pg/mL [facility] Comment: Test Performed at: [employer] [address] [address] TAMI GUILLERMO MD Blood BLOOD SPECIMEN / Unknown 06/30/2025 6:49 AM CDT 06/30/2025 6:49 AM CDT Cindi Neff SUPERVISOR COMPOSING ROOM-[facility] LAB - CHEMISTRY ORDERABLES Final Result Performing Organization Address [facility] Co de Phone Number [facility] [address] [place] [address] * MAMMO BILAT SCREENING W JUDY (10/28/2022 4:14 PM SEVERITY OF ILLNESS COORDINATOR) Anatomical Region Laterality Modality Breast Bilateral Mammography 10/29/2022 9:29 AM SEVERITY OF ILLNESS COORDINATOR Impressions 10/29/2022 2:29 PM SEVERITY OF ILLNESS COORDINATOR : 1. Small asymmetry in the superior posterior left breast on the MLO view only. 2. Stable negative right mammogram. RECOMMENDATION: Left breast / axillary ultrasound. If indicated at that time, diagnostic left mammogram will be performed. Patient will be contacted and scheduled to return for the additional imaging. OVERALL ASSESSMENT: BI-RADS CATEGORY 0: INCOMPLETE: NEED ADDITIONAL IMAGING EVALUATION. > Dictated by Steve Ortega MD (radiology nurse) with assistance from Jacky Zaman MD (radiology nurse). I, Margaret Tapia MD have personally reviewed and interpreted this examination/study. > Interpreting Provider: Margaret Tapia MD on 10/29/2022 2:29 PM Narrative 10/29/2022 2:29 PM SEVERITY OF ILLNESS COORDINATOR EXAMINATION: DIGITAL MAMMO BILAT SCREENING W JUDY AND WITH CAD DATE: 10/28/2022 HISTORY: Screening. 52-year-old female with family history of breast cancer in maternal grandfather at age 60, maternal aunt at age 58 and maternal aunt at age 59. Patient is asymptomatic. RISK ASSESSMENT CALCULATION: Patient completed a breast cancer risk assessment during her appointment. Based upon the information she provided and her mammographic breast density, her lifetime risk of developing breast cancer is 14 % (Average Risk <15%; Intermediate / Moderate Risk 15-19%; High Risk > 20%). There is an 8% personal risk of a BRCA1/2 gene mutation. COMPARISON: Prior breast imaging studies back to 07/26/2020, with the most recent dated 10/16/2021. TECHNIQUE: Tomosynthesis (3D) and reconstructed synthetic 2-D images acquired and reviewed in the bilateral craniocaudal and mediolateral oblique projections, with a total of 4 images obtained. Computer-aided detection (CAD) was utilized. BREAST PARENCHYMAL COMPOSITION: Category C: The breasts are heterogeneously dense which may obscure small masses. FINDINGS: Right breast: No suspicious findings or evidence of malignancy. No change from the prior studies. Left breast: Small asymmetry in the superior posterior breast on the MLO view only, 15 cm from the nipple. This is best seen on the MLO judy synthesis slice 27/58. us Hawa Monteiro MD MAMMO ORDERABLES Final Result * LIPID PROFILE (01/29/2022 7:54 AM T) Cholesterol Total 161 <200 mg/dL 01/29/2022 9:12 AM [facility] HDL 51 >40 mg/dL 01/29/2022 9:12 AM [facility] Comment: ATP III Classification of HDL Cholesterol: <40 mg/dL: Considered a major risk factor. >60 mg/dL: Considered a negative risk factor. LDL Calculated 97 <100 mg/dL 01/29/2022 9:12 AM [facility] Comment: ATP III Classification of LDL Cholesterol: <100 mg/dL: Optimal 100 - 129 mg/dL: Near Optimal/Above Optimal 130 - 159 mg/dL: Borderline High 160 - 189 mg/dL: High >190 mg/dL: Very High Triglycerides 64 <150 mg/dL 01/29/2022 9:12 AM [facility] Comment: ATP III Classification of Triglycerides: <150 mg/dL: Normal 150 - 199 mg/dL: Borderline High 200 - 400 mg/dL: High >500 mg/dL: Very High Blood BLOOD SPECIMEN / Unknown Lab Venipuncture / Unknown 01/29/2022 7:54 AM CDT 01/29/2022 8:40 AM CDT Juan Jose Bolden SUPERVISOR COMPOSING ROOM-NETWORK FIELD ENGINEER LAB - CHEMISTRY ORDER DARIA Final Result Performing Organization Address [facility]/ZIP Co de Phone Number [address] [address], [facility] [phone] * HIV-1 HIV-2 ANTIGEN/ANTIBODY (01/17/2021 10:46 AM CDT) HIV Antigen/Antibod y 1 & 2 Non-reacti ve Non-react everett 01/17/2021 12:12 PM CDT [facility] Comment:Neither HIV-1 p24 An tigen nor HIV-1/HIV-2 Antibodies are detected. Blood BLOOD SPECIMEN / Unknown Lab Venipuncture / Unknown 01/17/2021 10:46 AM CDT 01/17/2021 11:20 AM CDT Result [facility] Roscoe Mendoza MD LAB - HEMATOLOGY ORDERABLES Fin al Result Performing Organization Address [facility]/ZIP Co de Phone Number [address] [phone], [facility] [phone] * HEPATITIS C ANTIBODY (01/17/2021 10:46 AM CDT) Hepatitis C Antibody Non-react everett Non-reac tive 01/17/2021 12:12 PM CDT [facility] Comment:Hepatitis C Antibody screen indicates no serologic evidence of past or current infection with Hepatitis C Virus. Patients with unexplained liver disease who are immunocompromised or suspected of having acute Hepatitis C infection may benefit from Nucleic Acid Test (HODAN) for Hepatitis C Viral RNA to confirm Hepatitis C status. Blood BLOOD SPECIMEN / Unknown Lab Venipuncture / Unknown 01/17/2021 10:46 AM CDT 01/17/2021 11:20 AM CDT Roscoe Mendoza MD LAB - CHEMISTRY ORDERABLES Delisa may Result [facility] [address] [place] [address], [facility] [phone] from Last 3 Months or Most Recently Relevant to Health Maintenance Insurance AETNA AETNA Care Teams Machine Bunch Maker Relationship Specialty Start Date End Date Kristen Christina MD [address] [place] [phone] PCP - General Internal Medicine 02/24/23
--- OUTSIDE RECORDS SUMMARY | 2025-07-20 11:17 | XMS_ITS | Clinical Summary ---
Author Organization [facility] Mavis Roberts Address [address] [place] [address] Care Team Providers Care Administrative Technician Name Role Phone Unavailable Primary Care Provider Unavailabl e Allergies No known active allergies Medications lisinopriL (PRINIVIL) 30 mg tablet Take 30 mg by mouth daily. 01/20/2022 Active amLODIPine (NORVASC) 10 mg tablet Take 10 mg by mouth daily. 01/20/2022 Active ergocalciferol (VITAMIN D2) 50,000 unit capsule Take 50,000 Units by mouth every 7 days. 07/04/2025 Active Active Problems Problem Noted Date Diagnosed Date Leukopenia 03/10/2022 Encounters Date Type Department Care Team Description 07/20/2025 11:15 AM CDT Office Visit [facility] - [place] [address] [place] [address] Gabino Sweet MD Arrived 05/23/2025 External Device Data [facility] ABSTRACTION Provider, Abstract 05/03/2025 External Device Data [facility] ABSTRACTION Provider, Abstract 05/02/2025 External Device Data [facility] ABSTRACTION Provider, Abstract from Last 3 Months Family History Relation Name Status Comments Brother Alive Daughter Alive Father Mother Alive Sister 1 Alive Sister 2 Alive Son 1 Alive Son 2 Alive Social History Tobacco Use Types Packs/Day Years Used Date Smoking Tobacco: Never Smokeless Tobacco: Never Tobacco Cessation:Counseling Given: Not Answered Alcohol Use Standard Drinks/Week Comments Never 0 (1 standard drink = 0.6 oz pur e alcohol) Comments Unknown Sex and Gender Information Value Date Recorded Sex Assigned at Not on file Legal Sex Female 7:26 PM CHIEF ADMINISTRATIVE OFFICER Gender Identity Not on file Sexual Orientation Not on file Last Filed Vital Signs Vital Sign Reading Time Taken Comments Blood Pressure 137/86 07/20/2025 11:15 AM CDT Pulse 58 07/20/2025 11:15 AM CDT Temperature 36.6 C (97.8 F) 07/20/2025 11:15 AM CDT Respiratory Rate 15 07/20/2025 11:15 AM CDT Oxygen Saturation 98% 07/20/2025 11:15 AM CDT Inhaled Oxygen Concentration - - Weight 70.9 kg (156 lb 6.4 oz) 07/20/2025 11:15 AM CDT Height 149.9 cm (4' 11) 04/10/2022 2:15 PM CDT Body Mass Index 31.59 04/10/2022 2:15 PM CDT Plan of Treatment Health Maintenance Due Date Last Done Comments Pre-Diabetes and Diabetes Screening 1970 HEPATITIS B VACCINES (1 of 3 - 19+ 3-dose series) 1988 02/29/2024, 01/08/2024 HPV/Cotest (21-29) 1990 CERVICAL CANCER SCREENING 1999 HPV/Cotest (30-65) 1999 PAP SMEAR 1999 COLORECTAL SCREENING 2014 Colorectal Cancer Screening 2014 FIT-DNA Q 3 years 2014 FIT/FOBT Q 1 year 2014 Flex Sig/CT Colonography Q 5 years 2014 BREAST CANCER SCREENING 10/28/2023 10/28/19, 10/28/2022, 10/16/2021, Additional history exists INFLUENZA VACCINE (#1) 2025 09/18/2021 COVID-19 Vaccine (3 - 2024-2 6 season) 2025 11/30/2020, 11/09/2020 DTAP/TDAP/TD VACCINES (2 - T d or Tdap) 05/28/2031 05/28/2021 ZOSTER VACCINE Completed 12/10/2021, 09/18/2021 Insurance [employer] [facility] [id number] OUT OF NETWORK
== END 2025-07-20 10:45 | disposition home or self-care (01) ==
LOC: ANHLAB 10:46
PROVIDERS: PCP Emergency Medicine; Visit Provider Internal Medicine Hematology & Oncology
DX: D64.9 Anemia, unspecified (principal)
CPT/HCPCS: 36415; 80047; 85027